=== PATIENT | male | born 1985 | race Caucasian/White ===

== ENCOUNTER 2017-09-08 21:56 | Emergency (ER) | payer MEDICAID, OTHER ==
[~2017-09-08] VITALS: Ht 182.9 cm; Wt 131.7 kg
[~2017-09-08 21:56] MED LIST: CEPH500C5 PO; SULF1TAB49 PO
[2017-09-08] MEDS ORDERED: ondansetron 4mg rapidly disintigrating tab PO ONE (22:45)
[2017-09-08] MEDS ORDERED: LIDOcaine Viscous 15ml cup PO ONE (22:45)
[2017-09-08] MEDS ORDERED: mag hydrox/Alum hydrox/simeth 30ml oral suspension PO ONE (22:45)
[2017-09-08 22:49] LABS: BASOPHILS % (AUTO) 0.3 % (0-1); EOSINOPHILS # (AUTO) 0.3 X10'3 (0-0.9); HEMOGLOBIN 14.3 g/dl (14.0-17.9); LYMPHOCYTES # (AUTO) 2.2 X10'3 (1.1-4.8); LYMPHOCYTES % (AUTO) 31.9 % (21-51); MEAN CORPUSCULAR VOLUME 85.2 FL (78-98); MEAN PLATELET VOLUME 7.6 FL (7.4-10.4); MONOCYTES # (AUTO) 0.6 X10'3 (0-0.9); MONOCYTES % (AUTO) 8.2 % (2-12); NEUTROPHILS # (AUTO) 3.8 X10'3 (1.8-7.7); NEUTROPHILS % (AUTO) 55.6 % (42-75); PLATELET COUNT 270 X10'3 (140-440); RED BLOOD COUNT 4.93 X10'6 (4.70-6.10); RED CELL DISTRIBUTION WIDTH 12.9 % (11.5-14.5); WHITE BLOOD COUNT 6.8 X10'3 (4.5-11.0)
[2017-09-08] MEDS ORDERED: pantoprazole 40mg Tablet.DR PO ONE (22:55)
[2017-09-08] MEDS ORDERED: famotidine 20mg tablet PO ONE (22:55)
[2017-09-08 22:57] VITALS: BP 165/100
[2017-09-08 23:02] LABS: INR 0.9 INR; PARTIAL THROMBOPLASTIN TIME 27 SECONDS (22-32); PROTHROMBIN TIME 9.6 SECONDS (9.0-12.0)
[2017-09-08 23:06] LABS: ALANINE AMINOTRANSFERASE 94 U/L (12-78); ALBUMIN 3.7 G/DL (3.4-5.0); ALBUMIN/GLOBULIN RATIO 0.9 (1.1-1.5); ALKALINE PHOSPHATASE 82 IU/L (46-116); ANION GAP 5 (8-16); ASPARTATE AMINO TRANSFERASE 47 U/L (10-37); BILIRUBIN,TOTAL 0.4 MG/DL (0.1-1.0); BLOOD UREA NITROGEN 17 MG/DL (7-18); CALCIUM 8.9 MG/DL (8.5-10.1); CHLORIDE 107 MMOL/L (99-107); GLUCOSE 88 MG/DL (70-104); SODIUM 144 MMOL/L (135-145); TOTAL CARBON DIOXIDE 32.2 MMOL/L (24-32); TOTAL PROTEIN 7.6 G/DL (6.4-8.2); eGFR 87 ML/MIN
== END 2017-09-08 23:03 | disposition left against medical advice (07) ==
LOC: ER 21:56
DX: R07.89 Other chest pain (principal); I10 Essential (primary) hypertension; F11.10 Opioid abuse, uncomplicated; Z86.19 Personal history of other infectious and parasitic diseases; Z88.8 Allergy status to other drugs, medicaments and biological substances; Z79.899 Other long term (current) drug therapy
CPT/HCPCS: 36415; 71045; 80053; 84484; 85025; 85610; 85730; 93005; 99285

== ENCOUNTER 2017-10-22 11:00 | Emergency (ER) | payer MEDICAID ==
[~2017-10-22] VITALS: Ht 182.9 cm; Wt 124.4 kg
[2017-10-22 12:04] LABS: BASOPHILS % (AUTO) 0.4 % (0-1); EOSINOPHILS # (AUTO) 0.2 X10'3 (0-0.9); EOSINOPHILS % (AUTO) 2.4 % (0-6); HEMATOCRIT 40.5 % (42.0-52.0); HEMOGLOBIN 13.9 g/dl (14.0-17.9); LYMPHOCYTES # (AUTO) 1.9 X10'3 (1.1-4.8); LYMPHOCYTES % (AUTO) 22.6 % (21-51); MEAN CORPUSCULAR HEMOGLOBIN 28.9 PG (27.0-31.0); MEAN CORPUSCULAR HGB CONC 34.3 % (33.0-36.5); MEAN CORPUSCULAR VOLUME 84.3 FL (78-98); MONOCYTES # (AUTO) 0.5 X10'3 (0-0.9); MONOCYTES % (AUTO) 5.4 % (2-12); NEUTROPHILS # (AUTO) 5.9 X10'3 (1.8-7.7); NEUTROPHILS % (AUTO) 69.2 % (42-75); PLATELET COUNT 315 X10'3 (140-440); RED BLOOD COUNT 4.81 X10'6 (4.70-6.10); RED CELL DISTRIBUTION WIDTH 13.3 % (11.5-14.5); WHITE BLOOD COUNT 8.6 X10'3 (4.5-11.0)
[2017-10-22 12:17] LABS: PARTIAL THROMBOPLASTIN TIME 29 SECONDS (22-32)
[2017-10-22 12:21] LABS: ALANINE AMINOTRANSFERASE 81 U/L (12-78); ALBUMIN 3.7 G/DL (3.4-5.0); ALBUMIN/GLOBULIN RATIO 0.8 (1.1-1.5); ALKALINE PHOSPHATASE 76 IU/L (46-116); ANION GAP 9 (8-16); ASPARTATE AMINO TRANSFERASE 43 U/L (10-37); BILIRUBIN,TOTAL 0.5 MG/DL (0.1-1.0); BLOOD UREA NITROGEN 18 MG/DL (7-18); BUN/CREATININE RATIO 17.8 (5.4-32.0); CHLORIDE 105 MMOL/L (99-107); CREATININE 1.01 MG/DL (0.60-1.10); GLUCOSE 114 MG/DL (70-104); POTASSIUM 3.5 MMOL/L (3.5-5.1); SODIUM 143 MMOL/L (135-145); TOTAL CARBON DIOXIDE 28.9 MMOL/L (24-32); TOTAL PROTEIN 8.1 G/DL (6.4-8.2); eGFR 85 ML/MIN
[2017-10-22 18:26] LABS: CLARITY,URINE CLEAR (Clear); COLOR,URINE AMBER (Yellow); GLUCOSE, URINE NEGATIVE (Neg); KETONES,URINE NEGATIVE (Neg); LEUKOCYTE ESTERASE ,URINE NEGATIVE (Neg); NITRITES, URINE NEGATIVE (Neg); OCCULT BLOOD,URINE NEGATIVE (Neg); PH,URINE 6.5 (4.8-8.0); PROTEIN,URINE NEGATIVE (Neg)
[2017-10-22 18:28] LABS: UA COLLECTION TYPE CLN CATCH MIDSTREAM
[2017-10-22] MEDS ORDERED: LORazepam 2 mg/ml vial IV ONE ×2 (19:05→22:50)
[2017-10-22] MEDS: esmolol/sodium cl bag 250 ML IV SCH ×2 (19:15→23:09)
[2017-10-22] MEDS ORDERED: iohexol 350MG/ML 100ml bottle IV ONE (19:15)
[2017-10-22 23:00] LABS: URINE AMPHETAMINE SCREEN POSITIVE (Neg); URINE BARBITUATE SCREEN NEGATIVE (Neg); URINE BENZODIAZEPINES SCREEN NEGATIVE (Neg); URINE CANNABINOID SCREEN NEGATIVE (Neg); URINE COCAINE SCREEN NEGATIVE (Neg); URINE METHADONE SCREEN NEGATIVE (Neg); URINE OPIATE SCREEN POSITIVE (Neg); URINE PHENCYCLIDINE SCREEN NEGATIVE (Neg)
[2017-10-22] MEDS ORDERED: normal saline 1000ML IV soln IVB ONE (23:10)
[2017-10-23] MEDS ORDERED: CLON-527 PO (00:52)
[2017-10-23] MEDS ORDERED: ONDA4TAB9 SL (00:52)
[2017-10-23] MEDS: esmolol/sodium cl bag 250 ML IV SCH (01:57)
[2017-10-23 03:43] VITALS: BP 126/87
== END 2017-10-23 03:45 | disposition home or self-care (01) ==
LOC: ER 11:00
DX: F11.23 Opioid dependence with withdrawal (principal); I10 Essential (primary) hypertension; Z86.19 Personal history of other infectious and parasitic diseases; Z88.8 Allergy status to other drugs, medicaments and biological substances; Z79.899 Other long term (current) drug therapy
CPT/HCPCS: 36415; 71045; 71275; 74160; 80053; 80305; 81003; 83605; 84484; 85025; 85610; 85651; 85730; 87040; 93005; 93306; 96361; 96374; 96376; 99285; A4310; A4353; J2060; J3490; Q9967

== ENCOUNTER 2018-08-28 12:15 | Emergency (ER) | payer MEDICAID ==
[~2018-08-28] VITALS: Ht 180.3 cm; Wt 140.9 kg
[~2018-08-28 12:15] MED LIST changes: +CLON-527 PO
[2018-08-28 14:04] VITALS: BP 132/82
== END 2018-08-28 16:32 | disposition left against medical advice (07) ==
LOC: ER 12:16
DX: M54.9 Dorsalgia, unspecified (principal); Z53.21 Procedure and treatment not carried out due to patient leaving prior to being seen by health care provider

== ENCOUNTER 2018-12-31 17:00 | Emergency (ER) | payer MEDICAID ==
[~2018-12-31] VITALS: Ht 182.9 cm; Wt 118.0 kg
[2018-12-31 17:05] VITALS: BP 167/102
--- NOTE | 2018-12-31 17:26 | NUR ---
abscess to left fa, near elbow. no drainage noted.
[2018-12-31] MEDS ORDERED: LIDOcaine 1% w/epiNEPHrine 1:200,000 30ml vial IM ONE (19:10)
[2018-12-31] MEDS ORDERED: CEPH-572 PO (19:19)
[2018-12-31] MEDS ORDERED: SULF1TAB49 PO (19:19)
--- NOTE | 2018-12-31 20:19 | NUR ---
SAJI AUSTIN TRIED TO DRAW LIPASE X1. UNSUCCESSFUL. PT REFUSED ANYMORE BLOOD DRAWS AND PT WAS DC.
== END 2018-12-31 20:24 | disposition home or self-care (01) ==
LOC: ER 17:02
DX: L02.414 Cutaneous abscess of left upper limb (principal); I10 Essential (primary) hypertension; F17.200 Nicotine dependence, unspecified, uncomplicated; F11.90 Opioid use, unspecified, uncomplicated; Z88.8 Allergy status to other drugs, medicaments and biological substances; Z79.2 Long term (current) use of antibiotics; Z79.899 Other long term (current) drug therapy
CPT/HCPCS: 10060; 99283; J3490

== ENCOUNTER 2019-01-03 13:49 | Emergency (ER) | payer MEDICAID ==
[~2019-01-03] VITALS: Ht 182.9 cm; Wt 118.2 kg
[~2019-01-03 13:49] MED LIST changes: +CEPH-572 PO
[2019-01-03 14:04] VITALS: BP 143/87
== END 2019-01-03 14:43 | disposition home or self-care (01) ==
LOC: ER 13:50
DX: L02.414 Cutaneous abscess of left upper limb (principal); Z48.01 Encounter for change or removal of surgical wound dressing; R10.9 Unspecified abdominal pain; I10 Essential (primary) hypertension; F11.90 Opioid use, unspecified, uncomplicated; Z88.8 Allergy status to other drugs, medicaments and biological substances; Z79.899 Other long term (current) drug therapy
CPT/HCPCS: 99282

== ENCOUNTER 2019-04-25 17:49 | Emergency (ER) | payer MEDICAID ==
[~2019-04-25] VITALS: Ht 182.9 cm; Wt 130.0 kg
[~2019-04-25 17:49] MED LIST changes: -CEPH-572 PO
[2019-04-25 18:14] VITALS: BP 139/76
[2019-04-25 21:17] LABS: BASOPHILS % (AUTO) 0.2 % (0-1); EOSINOPHILS # (AUTO) 0.2 X10'3 (0-0.9); EOSINOPHILS % (AUTO) 2.8 % (0-6); HEMOGLOBIN 13.2 g/dl (14.0-17.9); LYMPHOCYTES # (AUTO) 1.8 X10'3 (1.1-4.8); LYMPHOCYTES % (AUTO) 25.8 % (21-51); MEAN CORPUSCULAR HEMOGLOBIN 29.2 PG (27.0-31.0); MEAN CORPUSCULAR HGB CONC 33.9 g/dL (33.0-36.5); MONOCYTES # (AUTO) 0.6 X10'3 (0-0.9); MONOCYTES % (AUTO) 8.6 % (2-12); NEUTROPHILS # (AUTO) 4.5 X10'3 (1.8-7.7); NEUTROPHILS % (AUTO) 62.6 % (42-75); PLATELET COUNT 236 X10'3 (140-440); RED BLOOD COUNT 4.53 X10'6 (4.70-6.10); RED CELL DISTRIBUTION WIDTH 14.3 % (11.5-14.5); WHITE BLOOD COUNT 7.1 X10'3 (4.5-11.0)
[2019-04-25 21:27] LABS: ALANINE AMINOTRANSFERASE 45 U/L (12-78); ALBUMIN 3.3 G/DL (3.4-5.0); ALBUMIN/GLOBULIN RATIO 0.8 (1.1-1.5); ALKALINE PHOSPHATASE 65 IU/L (46-116); ANION GAP 6 (8-16); ASPARTATE AMINO TRANSFERASE 18 U/L (10-37); BILIRUBIN,TOTAL 0.5 MG/DL (0.1-1.0); BLOOD UREA NITROGEN 13 MG/DL (7-18); BUN/CREATININE RATIO 15.5 (5.4-32.0); CALCIUM 8.7 MG/DL (8.5-10.1); CHLORIDE 106 MMOL/L (99-107); CREATININE 0.84 MG/DL (0.60-1.10); GLUCOSE 86 MG/DL (70-104); POTASSIUM 4.1 MMOL/L (3.5-5.1); SODIUM 142 MMOL/L (135-145); TOTAL CARBON DIOXIDE 30.2 MMOL/L (24-32); TOTAL PROTEIN 7.3 G/DL (6.4-8.2); eGFR > 90 ML/MIN
[2019-04-25] MEDS ORDERED: iohexol 300mg/ml 100ml inj. ONE (21:34)
[2019-04-25] MEDS ORDERED: SULF1TAB49 PO (22:09)
[2019-04-25] MEDS ORDERED: CEPH-572 PO (22:09)
[2019-04-25] MEDS ORDERED: cephalexin 250mg capsule PO ONE (22:10)
[2019-04-25] MEDS ORDERED: sulfamethoxazole/trimethoprim DS (800/160mg) tablet PO ONE (22:10)
--- NOTE | 2019-04-25 22:25 | NUR ---
PT REFUSING IV, AND CT SCAN. STATES I CANT STAY HERE I HAVE TO GET MY DOSE OF METHADONE 130MG IN THE AM AT 0500. STEPHON SERRANO ADVISED HIM NOT RECOMMENDED. PT LEFT AMA.
== END 2019-04-25 22:36 | disposition home or self-care (01) ==
LOC: ER 17:50
DX: L02.413 Cutaneous abscess of right upper limb (principal); I10 Essential (primary) hypertension; I25.10 Atherosclerotic heart disease of native coronary artery without angina pectoris; F11.90 Opioid use, unspecified, uncomplicated; Z88.8 Allergy status to other drugs, medicaments and biological substances; Z79.2 Long term (current) use of antibiotics
CPT/HCPCS: 36415; 80053; 85025; 85610; 99283; Q9967; 99284

== ENCOUNTER 2019-04-26 11:25 | Inpatient (IN) | payer MEDICAID ==
[~2019-04-26] VITALS: Ht 182.9 cm; Wt 118.2 kg
[~2019-04-26 11:25] MED LIST changes: +CEPH-572 PO
[2019-04-26] MEDS ORDERED: CefTRIAXone 2gm/D5W 50ml 50 ML IV ONE (11:55)
[2019-04-26 12:46] LABS: BASOPHILS % (AUTO) 0.3 % (0-1); EOSINOPHILS # (AUTO) 0.2 X10'3 (0-0.9); EOSINOPHILS % (AUTO) 2.7 % (0-6); HEMATOCRIT 40.5 % (42.0-52.0); HEMOGLOBIN 13.5 g/dl (14.0-17.9); LYMPHOCYTES # (AUTO) 1.4 X10'3 (1.1-4.8); LYMPHOCYTES % (AUTO) 19.3 % (21-51); MEAN CORPUSCULAR HGB CONC 33.4 g/dL (33.0-36.5); MEAN CORPUSCULAR VOLUME 86.9 FL (78-98); MEAN PLATELET VOLUME 7.3 FL (7.4-10.4); MONOCYTES # (AUTO) 0.5 X10'3 (0-0.9); MONOCYTES % (AUTO) 7.3 % (2-12); NEUTROPHILS % (AUTO) 70.4 % (42-75); PLATELET COUNT 257 X10'3 (140-440); RED BLOOD COUNT 4.66 X10'6 (4.70-6.10); RED CELL DISTRIBUTION WIDTH 13.9 % (11.5-14.5); WHITE BLOOD COUNT 7.1 X10'3 (4.5-11.0)
[2019-04-26 12:49] LABS: PARTIAL THROMBOPLASTIN TIME 31 SECONDS (22-32)
[2019-04-26 13:00] LABS: ALANINE AMINOTRANSFERASE 43 U/L (12-78); ALBUMIN 3.4 G/DL (3.4-5.0); ALBUMIN/GLOBULIN RATIO 0.8 (1.1-1.5); ALKALINE PHOSPHATASE 68 IU/L (46-116); ANION GAP 8 (8-16); ASPARTATE AMINO TRANSFERASE 21 U/L (10-37); BILIRUBIN,TOTAL 0.3 MG/DL (0.1-1.0); BLOOD UREA NITROGEN 11 MG/DL (7-18); CALCIUM 8.6 MG/DL (8.5-10.1); CHLORIDE 106 MMOL/L (99-107); CREATININE 0.92 MG/DL (0.60-1.10); GLUCOSE 93 MG/DL (70-104); MAGNESIUM 1.9 MG/DL (1.5-2.4); SODIUM 141 MMOL/L (135-145); TOTAL CARBON DIOXIDE 26.9 MMOL/L (24-32); TOTAL PROTEIN 7.6 G/DL (6.4-8.2); eGFR > 90 ML/MIN
[2019-04-26 13:12] LABS: POTASSIUM 3.9 MMOL/L (3.5-5.1)
--- NOTE | 2019-04-26 13:19 | NUR ---
ASSUMED CARE OF PT FROM GREG LENNON
--- NOTE | 2019-04-26 13:27 | NUR ---
PT IS RESTING QUIETLY ON GURNEY, ON PHONE, C/O RT UPPER ARM PAIN 12/23, GOING TO CT
[2019-04-26] MEDS ORDERED: magnesium 4gm in 100ml NS 100 ML IV PRN (15:10)
[2019-04-26] MEDS ORDERED: magnesium 2GM in 50ml NS 50 ML IV PRN (15:10)
[2019-04-26] MEDS ORDERED: HYDROcodone/acetaminophen 10/325mg tab PO PRN (15:10)
[2019-04-26] MEDS ORDERED: mag hydrox/Alum hydrox/simeth 30ml oral suspension PO PRN (15:10)
[2019-04-26] MEDS ORDERED: potassium Cl 20 mEq SR tablet PO PRN ×2 (15:10)
[2019-04-26] MEDS ORDERED: LORazepam 1 MG tablet PO PRN (15:10)
[2019-04-26] MEDS ORDERED: potassium CL 10mEq/100ml bag 100 ML IV PRN ×2 (15:10)
[2019-04-26] MEDS ORDERED: acetaminophen 325mg tablet PO PRN ×2 (15:10)
[2019-04-26] MEDS ORDERED: magnesium Cl slow-release 64mg tablet PO PRN (15:10)
[2019-04-26] MEDS ORDERED: metoclopramide 5 mg/ml inj IV PRN (15:10)
[2019-04-26] MEDS ORDERED: vancomycin/NS 1 GM ADD-VANTAGE 250 ML X 1 DOSE IV ONE (15:10)
[2019-04-26] MEDS ORDERED: magnesium hydroxide 30ml (MOM) UD suspension PO PRN (15:10)
[2019-04-26] MEDS ORDERED: HYDROmorphone inj. 0.5 MG/0.5 ML DISP.SYRIN IV PRN (15:10)
[2019-04-26] MEDS ORDERED: HYDROcodone/acetaminophen 5mg/325mg tablet PO PRN (15:10)
[2019-04-26] MEDS ORDERED: ondansetron/PF 4mg/2ml inj IV PRN (15:10)
--- NOTE | 2019-04-26 16:02 | NUR ---
PT IS RESTING QUIETLY ON GURNEY, ASKING FOR FOOD, PT HAS BED ASSIGNMENT [id number]
[2019-04-26] MEDS: normal saline 1000ml 1,000 ML IV SCH (16:27)
[2019-04-26 16:52] VITALS: BP 150/88
--- NOTE | 2019-04-26 16:52 | NUR ---
PAGER ID: [phone] MESSAGE: [phone] Teofilo Reeves(new admit) Does patient need to be NPO? Reg diet ordered but ER note says keep NPO? Is Nisa, doing procedure tonight? FLOYD [id number]
[2019-04-26 18:00] VITALS: BP 142/87
--- NOTE | 2019-04-26 18:00 | NUR ---
Received report from Kinga LENNON. Assumed care of patient.
--- NOTE | 2019-04-26 18:10 | NUR ---
Problems reprioritized. Patient report given, questions answered & plan of care reviewed with Dipti RN.
[2019-04-26 22:00] VITALS: BP 142/80
--- NOTE | 2019-04-27 02:31 | NUR ---
Informed Dr. Gonzalez pt is upset does not think we are treating him correctly with antibiotics ext. Informed pt of the treatment plan. Pt wanted Ibuprofen orders received. Informed that pt may leave AMA.
[2019-04-27] MEDS: ibuprofen 200mg tablet PO PRN (02:37)
[2019-04-27] MEDS: normal saline 1000ml 1,000 ML IV SCH ×3 (02:38→23:59)
[2019-04-27] MEDS: HYDROmorphone 1 mg/ml syringe IV PRN ×2 (02:45→17:48)
[2019-04-27 06:06] LABS: BASOPHILS % (AUTO) 0.1 % (0-1); EOSINOPHILS # (AUTO) 0.2 X10'3 (0-0.9); EOSINOPHILS % (AUTO) 3.1 % (0-6); HEMATOCRIT 38.6 % (42.0-52.0); HEMOGLOBIN 13.1 g/dl (14.0-17.9); LYMPHOCYTES # (AUTO) 1.5 X10'3 (1.1-4.8); LYMPHOCYTES % (AUTO) 21.2 % (21-51); MEAN CORPUSCULAR HEMOGLOBIN 29.2 PG (27.0-31.0); MEAN PLATELET VOLUME 7.2 FL (7.4-10.4); MONOCYTES # (AUTO) 0.5 X10'3 (0-0.9); MONOCYTES % (AUTO) 6.5 % (2-12); NEUTROPHILS # (AUTO) 4.9 X10'3 (1.8-7.7); NEUTROPHILS % (AUTO) 69.1 % (42-75); PLATELET COUNT 248 X10'3 (140-440); RED CELL DISTRIBUTION WIDTH 13.8 % (11.5-14.5)
[2019-04-27 06:19] LABS: ALANINE AMINOTRANSFERASE 42 U/L (12-78); ALBUMIN/GLOBULIN RATIO 0.8 (1.1-1.5); ALKALINE PHOSPHATASE 63 IU/L (46-116); ANION GAP 6 (8-16); ASPARTATE AMINO TRANSFERASE 25 U/L (10-37); BILIRUBIN,TOTAL 0.4 MG/DL (0.1-1.0); BLOOD UREA NITROGEN 10 MG/DL (7-18); BUN/CREATININE RATIO 10.9 (5.4-32.0); CALCIUM 8.5 MG/DL (8.5-10.1); CHLORIDE 105 MMOL/L (99-107); CREATININE 0.92 MG/DL (0.60-1.10); GLUCOSE 79 MG/DL (70-104); MAGNESIUM 1.8 MG/DL (1.5-2.4); POTASSIUM 3.9 MMOL/L (3.5-5.1); SODIUM 140 MMOL/L (135-145); TOTAL CARBON DIOXIDE 28.8 MMOL/L (24-32); TOTAL PROTEIN 6.9 G/DL (6.4-8.2); eGFR > 90 ML/MIN
[2019-04-27 06:22] VITALS: BP 148/89
--- NOTE | 2019-04-27 06:46 | NUR ---
Gave report to Shaista LENNON.
[2019-04-27] MEDS: K and/or MAG REPLACEMENT MC SCH (08:00)
[2019-04-27] MEDS: enoxaparin 40mg/0.4ml syringe SQ SCH (08:00)
--- NOTE | 2019-04-27 08:48 | NUR ---
PAGER ID: [phone] MESSAGE: Shaista [phone] re mora Alejo in [id number]- were you going to restart the methadone? He is anxious about it refusing the dilaudid thanks!
[2019-04-27] MEDS ORDERED: METH-603 PO (09:10)
[2019-04-27] MEDS: CefTRIAXone/D5W-Rocephin 1gm 50 ML IV SCH (09:35)
[2019-04-27] MEDS: methadone 10mg tablet PO SCH (10:26)
[2019-04-27] MEDS ORDERED: ringers solution, lacted 1,000 ML IV ONE (12:40)
[2019-04-27] MEDS ORDERED: VANCOMYCIN LEVEL IV ONE (15:30)
[2019-04-27] MEDS ORDERED: iohexol 300mg/ml 100ml inj. ONE (16:28)
[2019-04-27 18:00] VITALS: BP 128/75
[2019-04-27] MEDS: lactobacillus rhamnosus 10,000 MMU CELLS/CAPSULE PO SCH (19:46)
[2019-04-27 21:58] VITALS: BP 140/78
[2019-04-28 06:00] VITALS: BP 138/72
[2019-04-28] MEDS ORDERED: famotidine 20mg tablet PO ONE (06:00)
[2019-04-28 06:35] LABS: BASOPHILS % (AUTO) 0.2 % (0-1); EOSINOPHILS # (AUTO) 0.2 X10'3 (0-0.9); EOSINOPHILS % (AUTO) 4.6 % (0-6); HEMATOCRIT 35.8 % (42.0-52.0); HEMOGLOBIN 12.1 g/dl (14.0-17.9); LYMPHOCYTES # (AUTO) 1.7 X10'3 (1.1-4.8); MEAN CORPUSCULAR HEMOGLOBIN 29.4 PG (27.0-31.0); MEAN CORPUSCULAR HGB CONC 33.9 g/dL (33.0-36.5); MEAN CORPUSCULAR VOLUME 86.7 FL (78-98); MEAN PLATELET VOLUME 7.1 FL (7.4-10.4); MONOCYTES # (AUTO) 0.4 X10'3 (0-0.9); MONOCYTES % (AUTO) 8.5 % (2-12); NEUTROPHILS # (AUTO) 2.7 X10'3 (1.8-7.7); NEUTROPHILS % (AUTO) 52.7 % (42-75); PLATELET COUNT 245 X10'3 (140-440); RED BLOOD COUNT 4.12 X10'6 (4.70-6.10); RED CELL DISTRIBUTION WIDTH 13.8 % (11.5-14.5); WHITE BLOOD COUNT 5.1 X10'3 (4.5-11.0)
[2019-04-28 06:55] LABS: ALANINE AMINOTRANSFERASE 32 U/L (12-78); ALBUMIN 2.6 G/DL (3.4-5.0); ALBUMIN/GLOBULIN RATIO 0.7 (1.1-1.5); ALKALINE PHOSPHATASE 65 IU/L (46-116); ANION GAP 8 (8-16); ASPARTATE AMINO TRANSFERASE 19 U/L (10-37); BILIRUBIN,TOTAL 0.4 MG/DL (0.1-1.0); BLOOD UREA NITROGEN 7 MG/DL (7-18); BUN/CREATININE RATIO 7.8 (5.4-32.0); CALCIUM 7.9 MG/DL (8.5-10.1); CHLORIDE 106 MMOL/L (99-107); GLUCOSE 123 MG/DL (70-104); MAGNESIUM 1.9 MG/DL (1.5-2.4); POTASSIUM 3.7 MMOL/L (3.5-5.1); SODIUM 140 MMOL/L (135-145); TOTAL CARBON DIOXIDE 25.7 MMOL/L (24-32); TOTAL PROTEIN 6.3 G/DL (6.4-8.2); eGFR > 90 ML/MIN
[2019-04-28] MEDS: K and/or MAG REPLACEMENT MC SCH (08:00)
[2019-04-28] MEDS: enoxaparin 40mg/0.4ml syringe SQ SCH (08:00)
[2019-04-28] MEDS: lactobacillus rhamnosus 10,000 MMU CELLS/CAPSULE PO SCH ×2 (08:32→20:58)
[2019-04-28] MEDS: CefTRIAXone/D5W-Rocephin 1gm 50 ML IV SCH (08:32)
[2019-04-28] MEDS: methadone 10mg tablet PO SCH (08:33)
[2019-04-28] MEDS: normal saline 1000ml 1,000 ML IV SCH ×2 (09:59→18:00)
[2019-04-28 10:00] VITALS: BP_SYST 138; BP_SYST 142; BP_DIAS 72; BP_DIAS 90
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
[2019-04-28] MEDS ORDERED: VANCOMYCIN LEVEL IV ONE (13:30)
[2019-04-28] MEDS: clindamycin 600mg/D5W 50ml 50 ML IV SCH ×2 (15:08→20:58)
[2019-04-28] MEDS: HYDROmorphone 1 mg/ml syringe IV PRN ×2 (15:13→21:01)
[2019-04-28 22:00] VITALS: BP 142/79
[2019-04-29] VITALS (18 sets, daily range): BP systolic 118–154; BP diastolic 70–90
[2019-04-29] MEDS: clindamycin 600mg/D5W 50ml 50 ML IV SCH ×4 (01:18→19:49)
[2019-04-29] MEDS: HYDROmorphone 1 mg/ml syringe IV PRN ×3 (01:19→20:01)
[2019-04-29] MEDS: normal saline 1000ml 1,000 ML IV SCH ×3 (06:11→21:52)
--- NOTE | 2019-04-29 06:44 | NUR ---
Problems reprioritized. Patient report given, questions answered & plan of care reviewed with SAJI Noonan.
[2019-04-29] MEDS ORDERED: BUPIVAcaine/PF 2.5 mg/ml (0.25%) 30ml vial ONE (06:46)
[2019-04-29] MEDS ORDERED: LIDOcaine 1% 30ml preserv. free vial ONE (06:46)
[2019-04-29 06:53] LABS: ALANINE AMINOTRANSFERASE 40 U/L (12-78); ALBUMIN 2.7 G/DL (3.4-5.0); ALBUMIN/GLOBULIN RATIO 0.7 (1.1-1.5); ALKALINE PHOSPHATASE 60 IU/L (46-116); ANION GAP 5 (8-16); ASPARTATE AMINO TRANSFERASE 22 U/L (10-37); BILIRUBIN,TOTAL 0.2 MG/DL (0.1-1.0); BLOOD UREA NITROGEN 9 MG/DL (7-18); CALCIUM 9.4 MG/DL (8.5-10.1); CHLORIDE 106 MMOL/L (99-107); CREATININE 0.82 MG/DL (0.60-1.10); GLUCOSE 92 MG/DL (70-104); MAGNESIUM 1.8 MG/DL (1.5-2.4); POTASSIUM 3.9 MMOL/L (3.5-5.1); SODIUM 142 MMOL/L (135-145); TOTAL CARBON DIOXIDE 30.6 MMOL/L (24-32); TOTAL PROTEIN 6.7 G/DL (6.4-8.2); eGFR > 90 ML/MIN
[2019-04-29 06:57] LABS: BASOPHILS % (AUTO) 0.3 % (0-1); EOSINOPHILS # (AUTO) 0.2 X10'3 (0-0.9); EOSINOPHILS % (AUTO) 3.2 % (0-6); HEMATOCRIT 37.7 % (42.0-52.0); LYMPHOCYTES % (AUTO) 27.3 % (21-51); MEAN CORPUSCULAR HEMOGLOBIN 29.6 PG (27.0-31.0); MEAN CORPUSCULAR HGB CONC 34.5 g/dL (33.0-36.5); MEAN CORPUSCULAR VOLUME 85.7 FL (78-98); MEAN PLATELET VOLUME 7.1 FL (7.4-10.4); MONOCYTES # (AUTO) 0.7 X10'3 (0-0.9); NEUTROPHILS # (AUTO) 4.3 X10'3 (1.8-7.7); NEUTROPHILS % (AUTO) 59.2 % (42-75); PLATELET COUNT 274 X10'3 (140-440); RED BLOOD COUNT 4.39 X10'6 (4.70-6.10); RED CELL DISTRIBUTION WIDTH 13.7 % (11.5-14.5); WHITE BLOOD COUNT 7.2 X10'3 (4.5-11.0)
[2019-04-29] MEDS ORDERED: sevoflurane 250ml liquid IH ONE (07:45)
[2019-04-29] MEDS ORDERED: fentaNYL/PF 50MCG/1 ML 2ML syringe ONE ×3 (07:48→08:04)
[2019-04-29] MEDS ORDERED: midazolam 2 mg/2 ml injection ONE (07:48)
[2019-04-29] MEDS: CefTRIAXone/D5W-Rocephin 1gm 50 ML IV SCH (08:00)
[2019-04-29] MEDS: K and/or MAG REPLACEMENT MC SCH (08:00)
--- NOTE | 2019-04-29 08:22 | NUR ---
Received from OR via ORTHO BED, accompanied by Anesthesiologist DR FANG and report given by Anesthesiolgist. PT PLACED ON O2 AND MONITOR, S/P I AND D OF RIGHT FOREARM, GENERAL ANESTH, AROUSES TO NAME CALLING AND GENTLE SHAKING PT HAS ZION WRAP DRESSING TO RIGHT FOREARM, CDI, DENIES ANY PAIN OR NAUSEA, GOOD RADIAL PULSES BILAT, GOOD CSM, WILL CONT TO ASSESS.
[2019-04-29] MEDS ORDERED: ringers solution, lacted 1,000 ML IV SCH (08:28)
[2019-04-29] MEDS ORDERED: morphine 4 MG/ML inj SYRINge IV PRN ×2 (08:30)
[2019-04-29] MEDS ORDERED: meperidine/PF 25mg/ml syringe IV PRN ×3 (08:30)
[2019-04-29] MEDS ORDERED: ondansetron/PF 4mg/2ml inj IV PRN (08:30)
[2019-04-29] MEDS ORDERED: proCHLORperazine 10 MG/2 ml inj IV PRN (08:30)
[2019-04-29] MEDS ORDERED: LIDOcaine 2% (20mg/ml) 5ml vial ONE (08:33)
[2019-04-29] MEDS ORDERED: propofol inj 40 ML IV ONE (08:34)
[2019-04-29] MEDS ORDERED: dexamethasone sod phosphate 4mg/ml inj. ONE (08:34)
--- NOTE | 2019-04-29 09:02 | NUR ---
Report called to receiving nurse. Transferred via ORTHO BED TO ROOM 4013A Belongings . Special Issues communicated to receiving nurse.
[2019-04-29] MEDS: methadone 10mg tablet PO SCH (09:38)
[2019-04-29] MEDS: lactobacillus rhamnosus 10,000 MMU CELLS/CAPSULE PO SCH ×2 (09:38→19:48)
[2019-04-29] MEDS: enoxaparin 40mg/0.4ml syringe SQ SCH (09:39)
--- NOTE | 2019-04-29 10:32 | NUR ---
rocephin and clindamycin were administered by OR staff per anesthesiology record in the paper chart.
--- NOTE | 2019-04-29 18:45 | NUR ---
Patient in room ORTHO 4013. I have received report from SAJI Noonan and had the opportunity to ask questions and assume patient care.
[2019-04-30] VITALS (7 sets, daily range): BP systolic 119–143; BP diastolic 65–82
[2019-04-30] MEDS: clindamycin 600mg/D5W 50ml 50 ML IV SCH ×3 (01:23→14:13)
[2019-04-30] MEDS: normal saline 1000ml 1,000 ML IV SCH ×2 (05:05→19:23)
--- NOTE | 2019-04-30 06:11 | NUR ---
Problems reprioritized. Patient report given, questions answered & plan of care reviewed with SAJI Donato.
--- NOTE | 2019-04-30 06:19 | NUR ---
Patient in room ORTHO 4013. I have received report from Daphney LENNON and had the opportunity to ask questions and assume patient care.
[2019-04-30 06:39] LABS: BASOPHILS # (AUTO) 0.1 X10'3 (0-0.2); BASOPHILS % (AUTO) 0.3 % (0-1); EOSINOPHILS % (AUTO) 0.1 % (0-6); HEMATOCRIT 38.6 % (42.0-52.0); HEMOGLOBIN 12.8 g/dl (14.0-17.9); LYMPHOCYTES # (AUTO) 1.4 X10'3 (1.1-4.8); LYMPHOCYTES % (AUTO) 8.4 % (21-51); MEAN CORPUSCULAR HEMOGLOBIN 28.6 PG (27.0-31.0); MEAN CORPUSCULAR HGB CONC 33.3 g/dL (33.0-36.5); MONOCYTES # (AUTO) 0.9 X10'3 (0-0.9); MONOCYTES % (AUTO) 5.3 % (2-12); NEUTROPHILS # (AUTO) 14.2 X10'3 (1.8-7.7); NEUTROPHILS % (AUTO) 85.9 % (42-75); PLATELET COUNT 342 X10'3 (140-440); RED BLOOD COUNT 4.49 X10'6 (4.70-6.10); RED CELL DISTRIBUTION WIDTH 13.9 % (11.5-14.5); WHITE BLOOD COUNT 16.5 X10'3 (4.5-11.0)
[2019-04-30 06:53] LABS: ALANINE AMINOTRANSFERASE 37 U/L (12-78); ALBUMIN 2.8 G/DL (3.4-5.0); ALBUMIN/GLOBULIN RATIO 0.6 (1.1-1.5); ALKALINE PHOSPHATASE 66 IU/L (46-116); ANION GAP 8 (8-16); ASPARTATE AMINO TRANSFERASE 18 U/L (10-37); BILIRUBIN,TOTAL 0.1 MG/DL (0.1-1.0); BLOOD UREA NITROGEN 9 MG/DL (7-18); BUN/CREATININE RATIO 9.9 (5.4-32.0); CALCIUM 8.9 MG/DL (8.5-10.1); CHLORIDE 107 MMOL/L (99-107); CREATININE 0.91 MG/DL (0.60-1.10); GLUCOSE 132 MG/DL (70-104); POTASSIUM 4.3 MMOL/L (3.5-5.1); SODIUM 143 MMOL/L (135-145); TOTAL PROTEIN 7.2 G/DL (6.4-8.2); eGFR > 90 ML/MIN
[2019-04-30] MEDS: K and/or MAG REPLACEMENT MC SCH (08:00)
[2019-04-30] MEDS: lactobacillus rhamnosus 10,000 MMU CELLS/CAPSULE PO SCH ×2 (08:03→19:13)
[2019-04-30] MEDS: enoxaparin 40mg/0.4ml syringe SQ SCH (08:03)
[2019-04-30] MEDS: methadone 10mg tablet PO SCH (08:04)
[2019-04-30] MEDS: CefTRIAXone/D5W-Rocephin 1gm 50 ML IV SCH (09:16)
[2019-04-30] MEDS: ibuprofen 200mg tablet PO PRN (09:17)
[2019-04-30] MEDS: HYDROmorphone 1 mg/ml syringe IV PRN (14:13)
[2019-04-30] MEDS ORDERED: LIDOcaine 1%/PF 5ML 10 MG/ML VIAL SQ ONE (15:50)
--- NOTE | 2019-04-30 17:00 | NUR ---
Dr. Chakraborty assisted with sterile dressing change. Dr. Chakraborty ordered Lidocaine and administered it into the wound, let sit for 10-15 minutes. Surgical wound was repacked sterile with 1/2 inch iodoform soaked in normal saline, ABD pad over and ZION wrap
--- NOTE | 2019-04-30 18:23 | NUR ---
Problems reprioritized. Patient report given, questions answered & plan of care reviewed with Remedios LENNON.
[2019-05-01 06:00] VITALS: BP 131/78
--- NOTE | 2019-05-01 06:41 | NUR ---
Patient in room ORTHO 4013. I have received report from Remedios LENNON and had the opportunity to ask questions and assume patient care.
[2019-05-01] MEDS: CefTRIAXone/D5W-Rocephin 1gm 50 ML IV SCH (07:33)
[2019-05-01] MEDS: lactobacillus rhamnosus 10,000 MMU CELLS/CAPSULE PO SCH (07:34)
[2019-05-01] MEDS: enoxaparin 40mg/0.4ml syringe SQ SCH (07:35)
[2019-05-01] MEDS: ibuprofen 200mg tablet PO PRN (07:35)
[2019-05-01] MEDS: methadone 10mg tablet PO SCH (07:35)
[2019-05-01] MEDS: normal saline 1000ml 1,000 ML IV SCH (07:36)
[2019-05-01] MEDS: K and/or MAG REPLACEMENT MC SCH (07:52)
--- NOTE | 2019-05-01 09:33 | NUR ---
PAGER ID: [phone] MESSAGE: Kinga [phone]. RE: [id number] Teofilo Reeves. Wound care is here to change wound but pt refusing unless lidocaine ordered. can we order lidocaine? Thanks
[2019-05-01] MEDS ORDERED: LIDOcaine 1%/PF 5ML 10 MG/ML VIAL SQ ONE ×2 (09:35→10:00)
[2019-05-01] MEDS ORDERED: LIDOcaine 1% (10mg/ml) 2ml vial SQ ONE (09:45)
[2019-05-01 10:00] VITALS: BP 141/87
[2019-05-01] MEDS ORDERED: LIDOcaine 1% 30ml preserv. free vial SQ ONE (10:00)
--- NOTE | 2019-05-01 10:00 | NUR ---
mapping pilot administered lidocaine to wound for dressing change per Dr. Loomis.
[2019-05-01 11:44] LABS: BASOPHILS % (AUTO) 0.4 % (0-1); EOSINOPHILS # (AUTO) 0.1 X10'3 (0-0.9); EOSINOPHILS % (AUTO) 1.4 % (0-6); HEMATOCRIT 41.2 % (42.0-52.0); HEMOGLOBIN 13.8 g/dl (14.0-17.9); LYMPHOCYTES % (AUTO) 33.5 % (21-51); MEAN CORPUSCULAR HEMOGLOBIN 29.2 PG (27.0-31.0); MEAN CORPUSCULAR HGB CONC 33.5 g/dL (33.0-36.5); MONOCYTES # (AUTO) 0.6 X10'3 (0-0.9); MONOCYTES % (AUTO) 6.6 % (2-12); NEUTROPHILS # (AUTO) 5.2 X10'3 (1.8-7.7); NEUTROPHILS % (AUTO) 58.1 % (42-75); PLATELET COUNT 353 X10'3 (140-440); RED BLOOD COUNT 4.73 X10'6 (4.70-6.10)
[2019-05-01 11:56] LABS: ALANINE AMINOTRANSFERASE 40 U/L (12-78); ALBUMIN 3.1 G/DL (3.4-5.0); ALBUMIN/GLOBULIN RATIO 0.7 (1.1-1.5); ALKALINE PHOSPHATASE 60 IU/L (46-116); ANION GAP 11 (8-16); ASPARTATE AMINO TRANSFERASE 22 U/L (10-37); BILIRUBIN,TOTAL 0.2 MG/DL (0.1-1.0); BLOOD UREA NITROGEN 11 MG/DL (7-18); BUN/CREATININE RATIO 12.4 (5.4-32.0); CALCIUM 8.6 MG/DL (8.5-10.1); CHLORIDE 103 MMOL/L (99-107); CREATININE 0.89 MG/DL (0.60-1.10); GLUCOSE 72 MG/DL (70-104); MAGNESIUM 1.9 MG/DL (1.5-2.4); POTASSIUM 3.8 MMOL/L (3.5-5.1); SODIUM 142 MMOL/L (135-145); TOTAL CARBON DIOXIDE 27.8 MMOL/L (24-32); TOTAL PROTEIN 7.3 G/DL (6.4-8.2); eGFR > 90 ML/MIN
[2019-05-01] MEDS ORDERED: SULF1TAB49 PO (12:21)
--- NOTE | 2019-05-01 13:18 | NUR ---
Safe discharge. Patient left with all personal belongings. went over DC packet.
--- NOTE | 2019-05-01 17:09 | NUR ---
I have reviewed and agree with all interventions, assessments performed and documented by Michel LENNON.
[2019-05-01] MEDS ORDERED: VANCOMYCIN LEVEL IV ONE (18:30)
== END 2019-05-01 13:00 | disposition home or self-care (01) | DRG 364 ==
LOC: ER 11:26 → ORTHO 4S 16:23 → CMPBEDREQ 19:04
PROVIDERS: ADMIT Family Medicine; ATTEND Family Medicine
PROC: BP2 Imaging, Non-Axial Upper Bones, Computerized Tomography (CT Scan) (ICD-10-PCS; 2019-04-26)
PROC: BQ2S1ZZ Computerized Tomography (CT Scan) of Left Lower Extremity using Low Osmolar Contrast (ICD-10-PCS; 2019-04-27)
PROC: 0J9G0ZZ Drainage of Right Lower Arm Subcutaneous Tissue and Fascia, Open Approach (ICD-10-PCS; principal; 2019-04-29 07:45)
DX: L03.113 Cellulitis of right upper limb (principal); L03.116 Cellulitis of left lower limb; L02.413 Cutaneous abscess of right upper limb; B19.20 Unspecified viral hepatitis C without hepatic coma; B95.62 Methicillin resistant Staphylococcus aureus infection as the cause of diseases classified elsewhere; F17.210 Nicotine dependence, cigarettes, uncomplicated; E66.9 Obesity, unspecified; G89.29 Other chronic pain; F11.90 Opioid use, unspecified, uncomplicated; I10 Essential (primary) hypertension; Z82.49 Family history of ischemic heart disease and other diseases of the circulatory system; Z83.3 Family history of diabetes mellitus; Z68.35 Body mass index [BMI] 35.0-35.9, adult; Z88.8 Allergy status to other drugs, medicaments and biological substances
CPT/HCPCS: 36415; 73201; 73701; 80053; 80202; 83605; 83735; 84145; 85025; 85610; 85730; 87040; 87070; 87075; 87077; 87081; 87102; 87186; 93005; 93971; 96365; 99285; A4618; A6253; A6407; A6449; A7000; G0378; J0696; J1100; J1170; J1650; J2001; J2175; J2250; J2405; J2704; J3010; J3370; J3490; J7030; J7120; Q9967

== ENCOUNTER 2019-06-19 15:33 | Emergency (ER) | payer MEDICAID ==
[~2019-06-19] VITALS: Ht 180.3 cm; Wt 141.0 kg
[~2019-06-19 15:33] MED LIST changes: -CEPH-572 PO; -CEPH500C5 PO; -CLON-527 PO; +METH-603 PO; -SULF1TAB49 PO
[2019-06-19 15:42] VITALS: BP 140/86
== END 2019-06-19 16:16 | disposition home or self-care (01) ==
LOC: ER 15:33
DX: D17.1 Benign lipomatous neoplasm of skin and subcutaneous tissue of trunk (principal); I10 Essential (primary) hypertension; F10.99 Alcohol use, unspecified with unspecified alcohol-induced disorder; F11.90 Opioid use, unspecified, uncomplicated; Z86.19 Personal history of other infectious and parasitic diseases; Z88.6 Allergy status to analgesic agent; Z79.899 Other long term (current) drug therapy; Y90.9 Presence of alcohol in blood, level not specified
CPT/HCPCS: 99281

== ENCOUNTER 2019-06-29 19:44 | Emergency (ER) | payer MEDICAID ==
[~2019-06-29] VITALS: Ht 180.3 cm; Wt 142.0 kg
[2019-06-29 19:51] VITALS: BP 141/100
== END 2019-06-29 22:03 | disposition left against medical advice (07) ==
LOC: ER 19:45
DX: R10.9 Unspecified abdominal pain (principal); Z53.21 Procedure and treatment not carried out due to patient leaving prior to being seen by health care provider

== ENCOUNTER 2019-06-30 08:41 | Emergency (ER) | payer MEDICAID ==
[~2019-06-30] VITALS: Ht 180.3 cm; Wt 127.0 kg
[2019-06-30 10:09] VITALS: BP 140/86
== END 2019-06-30 10:09 | disposition home or self-care (01) ==
LOC: ER 08:42
DX: K46.9 Unspecified abdominal hernia without obstruction or gangrene (principal); I10 Essential (primary) hypertension; Z56.0 Unemployment, unspecified; Z88.5 Allergy status to narcotic agent; Z79.899 Other long term (current) drug therapy; Z86.19 Personal history of other infectious and parasitic diseases
CPT/HCPCS: 76881; 99284

== ENCOUNTER 2019-08-07 09:01 | Emergency (ER) | payer MEDICAID ==
[~2019-08-07] VITALS: Ht 182.9 cm; Wt 118.2 kg
[2019-08-07 09:25] VITALS: BP 158/105
== END 2019-08-07 09:55 | disposition home or self-care (01) ==
LOC: ER 09:02
DX: R10.13 Epigastric pain (principal); R10.11 Right upper quadrant pain; R06.02 Shortness of breath; I10 Essential (primary) hypertension; F10.99 Alcohol use, unspecified with unspecified alcohol-induced disorder; F11.90 Opioid use, unspecified, uncomplicated; Z56.0 Unemployment, unspecified; Z86.19 Personal history of other infectious and parasitic diseases; Z88.8 Allergy status to other drugs, medicaments and biological substances; Z79.899 Other long term (current) drug therapy; Y90.9 Presence of alcohol in blood, level not specified
CPT/HCPCS: 99281

== ENCOUNTER 2019-09-06 20:19 | Emergency (ER) | payer MEDICAID ==
[~2019-09-06] VITALS: Ht 180.3 cm; Wt 150.0 kg
--- NOTE | 2019-09-06 22:12 | NUR ---
intermittent c/p this past week with some SOB that he notices when he is home from the gym. SOB is briefly, about 20 minutes. He lays down. Resolves with rest. The pain in his chest lasts quickly.
[2019-09-06 22:13] LABS: BASOPHILS % (AUTO) 0 % (0-1); EOSINOPHILS # (AUTO) 0.2 X10'3 (0-0.9); EOSINOPHILS % (AUTO) 4.3 % (0-6); HEMATOCRIT 43.6 % (42.0-52.0); LYMPHOCYTES # (AUTO) 2.4 X10'3 (1.1-4.8); LYMPHOCYTES % (AUTO) 41.3 % (21-51); MEAN CORPUSCULAR HEMOGLOBIN 29.6 PG (27.0-31.0); MEAN CORPUSCULAR HGB CONC 34.3 g/dL (33.0-36.5); MEAN CORPUSCULAR VOLUME 86.2 FL (78-98); MEAN PLATELET VOLUME 7.5 FL (7.4-10.4); MONOCYTES # (AUTO) 0.5 X10'3 (0-0.9); MONOCYTES % (AUTO) 8.5 % (2-12); NEUTROPHILS # (AUTO) 2.7 X10'3 (1.8-7.7); NEUTROPHILS % (AUTO) 45.9 % (42-75); PLATELET COUNT 286 X10'3 (140-440); RED BLOOD COUNT 5.06 X10'6 (4.70-6.10); RED CELL DISTRIBUTION WIDTH 12.9 % (11.5-14.5); WHITE BLOOD COUNT 5.8 X10'3 (4.5-11.0)
[2019-09-06 22:22] LABS: ALANINE AMINOTRANSFERASE 127 U/L (12-78); ALBUMIN 4.1 G/DL (3.4-5.0); ALBUMIN/GLOBULIN RATIO 1.1 (1.1-1.5); ALKALINE PHOSPHATASE 60 IU/L (46-116); ANION GAP 8 (8-16); ASPARTATE AMINO TRANSFERASE 57 U/L (10-37); BILIRUBIN,TOTAL 0.4 MG/DL (0.1-1.0); BLOOD UREA NITROGEN 17 MG/DL (7-18); CALCIUM 9.3 MG/DL (8.5-10.1); CHLORIDE 105 MMOL/L (99-107); GLUCOSE 88 MG/DL (70-104); POTASSIUM 4.1 MMOL/L (3.5-5.1); SODIUM 142 MMOL/L (135-145); TOTAL CARBON DIOXIDE 28.7 MMOL/L (24-32); TOTAL PROTEIN 7.9 G/DL (6.4-8.2); eGFR 86 ML/MIN
[2019-09-06 23:00] VITALS: BP 155/92
== END 2019-09-06 23:18 | disposition home or self-care (01) ==
LOC: ER 20:20
DX: R07.89 Other chest pain (principal); R06.02 Shortness of breath; I10 Essential (primary) hypertension; F11.90 Opioid use, unspecified, uncomplicated; Z86.19 Personal history of other infectious and parasitic diseases; Z56.0 Unemployment, unspecified; Z88.5 Allergy status to narcotic agent; Z79.899 Other long term (current) drug therapy
CPT/HCPCS: 36415; 71045; 80053; 84484; 85025; 93005; 99284

== ENCOUNTER 2020-02-04 18:52 | Emergency (ER) | payer MEDICAID ==
[~2020-02-04] VITALS: Ht 180.3 cm; Wt 127.3 kg
[2020-02-04 18:54] VITALS: BP 140/99
[2020-02-04] MEDS ORDERED: penicillin G benzathine 1.2 million unit/2ml syringe IM ONE (19:15)
[2020-02-04] MEDS ORDERED: dexamethasone 4mg tablet PO ONE (19:15)
[2020-02-04] MEDS ORDERED: PRED20TA PO (19:23)
== END 2020-02-04 19:36 | disposition home or self-care (01) ==
LOC: ER 18:52
DX: J02.9 Acute pharyngitis, unspecified (principal); R51 Headache; H53.8 Other visual disturbances; I10 Essential (primary) hypertension; F11.90 Opioid use, unspecified, uncomplicated; Z86.19 Personal history of other infectious and parasitic diseases; Z72.89 Other problems related to lifestyle; Z56.0 Unemployment, unspecified; Z88.8 Allergy status to other drugs, medicaments and biological substances; Z79.899 Other long term (current) drug therapy
CPT/HCPCS: 96372; 99283; J0561

== ENCOUNTER 2020-03-14 | Emergency (ER) | payer MEDICAID ==
[~2020-03-14] VITALS: Ht 180.3 cm; Wt 131.8 kg
[2020-03-14 00:06] VITALS: BP 155/67
== END 2020-03-14 02:10 | disposition left against medical advice (07) ==
LOC: ER
DX: R05 Cough (principal); Z53.21 Procedure and treatment not carried out due to patient leaving prior to being seen by health care provider

== ENCOUNTER 2020-04-23 01:35 | Emergency (ER) | payer MEDICAID ==
[~2020-04-23] VITALS: Ht 180.3 cm; Wt 152.0 kg
[2020-04-23 01:42] VITALS: BP 162/95
[2020-04-23] MEDS ORDERED: SULF1TAB49 PO (02:26)
== END 2020-04-23 02:41 | disposition home or self-care (01) ==
LOC: ER 01:35
DX: L03.116 Cellulitis of left lower limb (principal); I10 Essential (primary) hypertension; F11.90 Opioid use, unspecified, uncomplicated; Z86.19 Personal history of other infectious and parasitic diseases; Z72.89 Other problems related to lifestyle; Z88.8 Allergy status to other drugs, medicaments and biological substances; Z79.899 Other long term (current) drug therapy
CPT/HCPCS: 99284

== ENCOUNTER 2020-06-29 00:23 | Emergency (ER) | payer MEDICAID ==
[~2020-06-29] VITALS: Ht 182.9 cm; Wt 122.7 kg
[2020-06-29 00:27] VITALS: BP 168/82
[2020-06-29] MEDS ORDERED: SULF1TAB49 PO ×2 (01:36→01:42)
== END 2020-06-29 02:08 | disposition home or self-care (01) ==
LOC: ER 00:23
DX: L02.412 Cutaneous abscess of left axilla (principal); I10 Essential (primary) hypertension; F11.90 Opioid use, unspecified, uncomplicated; Z86.19 Personal history of other infectious and parasitic diseases; Z72.89 Other problems related to lifestyle; Z88.8 Allergy status to other drugs, medicaments and biological substances; Z79.2 Long term (current) use of antibiotics; Z79.899 Other long term (current) drug therapy
CPT/HCPCS: 99283

== ENCOUNTER 2020-07-11 23:31 | Emergency (ER) | payer MEDICAID ==
[~2020-07-11] VITALS: Ht 180.3 cm; Wt 127.3 kg
[~2020-07-11 23:31] MED LIST changes: +SULF1TAB49 PO
[2020-07-12 02:15] VITALS: BP 130/97
== END 2020-07-12 03:00 | disposition home or self-care (01) ==
LOC: ER 23:31
DX: M79.605 Pain in left leg (principal); I10 Essential (primary) hypertension; F17.200 Nicotine dependence, unspecified, uncomplicated; F11.90 Opioid use, unspecified, uncomplicated; Z86.19 Personal history of other infectious and parasitic diseases; Z72.89 Other problems related to lifestyle; Z88.8 Allergy status to other drugs, medicaments and biological substances; Z79.2 Long term (current) use of antibiotics; Z79.899 Other long term (current) drug therapy
CPT/HCPCS: 93971; 99284

== ENCOUNTER 2020-08-01 05:47 | Emergency (ER) | payer MEDICAID ==
[~2020-08-01] VITALS: Ht 180.3 cm; Wt 127.3 kg
[2020-08-01 05:54] VITALS: BP 165/92
[2020-08-01] MEDS ORDERED: sulfamethoxazole/trimethoprim DS (800/160mg) tablet PO ONE (06:55)
[2020-08-01] MEDS ORDERED: SULF1TAB49 PO (07:02)
== END 2020-08-01 07:08 | disposition home or self-care (01) ==
LOC: ER 05:47
DX: L02.412 Cutaneous abscess of left axilla (principal); I10 Essential (primary) hypertension; F17.200 Nicotine dependence, unspecified, uncomplicated; Z86.19 Personal history of other infectious and parasitic diseases; Z72.89 Other problems related to lifestyle; Z88.8 Allergy status to other drugs, medicaments and biological substances; Z79.2 Long term (current) use of antibiotics; Z79.899 Other long term (current) drug therapy
CPT/HCPCS: 99283

== ENCOUNTER 2020-10-16 16:20 | Emergency (ER) | payer MEDICAID ==
[~2020-10-16] VITALS: Ht 180.3 cm; Wt 163.0 kg
[2020-10-16] MEDS ORDERED: LIDOcaine 1% W/epiNEPHrine 1:200,000 10ml vial IJ ONE (17:05)
[2020-10-16] MEDS ORDERED: TETanus/Pertussis (Acell)/Diphther VAC/PF (Tdap-Adult) 0.5ml syringe IMVAC ONE (17:05)
[2020-10-16] MEDS ORDERED: CEPH250T PO (17:07)
[2020-10-16] MEDS ORDERED: SULF1TAB45 PO (17:07)
[2020-10-16 18:12] VITALS: BP 127/83
== END 2020-10-16 18:47 | disposition home or self-care (01) ==
LOC: ER 16:20
DX: L02.414 Cutaneous abscess of left upper limb (principal); I10 Essential (primary) hypertension; Z88.8 Allergy status to other drugs, medicaments and biological substances; Z79.2 Long term (current) use of antibiotics; Z79.899 Other long term (current) drug therapy; Z86.19 Personal history of other infectious and parasitic diseases; Z72.89 Other problems related to lifestyle
CPT/HCPCS: 10060; 90471; 90715; 99284

== ENCOUNTER 2021-02-23 04:02 | Emergency (ER) | payer MEDICAID ==
[~2021-02-23] VITALS: Ht 180.3 cm; Wt 131.0 kg
[2021-02-23 04:18] VITALS: BP 153/103
== END 2021-02-23 05:25 | disposition home or self-care (01) ==
LOC: ER 04:03
DX: R10.13 Epigastric pain (principal); I10 Essential (primary) hypertension; F15.90 Other stimulant use, unspecified, uncomplicated; Z86.19 Personal history of other infectious and parasitic diseases; Z72.89 Other problems related to lifestyle; Z88.8 Allergy status to other drugs, medicaments and biological substances; Z79.899 Other long term (current) drug therapy; Z72.0 Tobacco use
CPT/HCPCS: 93005; 99283

== ENCOUNTER 2021-03-02 18:39 | Emergency (ER) | payer MEDICAID ==
[~2021-03-02] VITALS: Ht 180.3 cm; Wt 122.7 kg
[2021-03-02 19:19] VITALS: BP 161/85
--- NOTE | 2021-03-02 20:26 | NUR ---
pt is 35 yo male c/o abscess, red, slightly swollen, no drainage to left AC x2 days, does use heroin off and on, also on methadone from a clinic, last used a couple days ago,
[2021-03-02] MEDS ORDERED: SULF1TAB49 PO (20:39)
[2021-03-02] MEDS ORDERED: sulfamethoxazole/trimethoprim DS (800/160mg) tablet PO ONE (20:45)
== END 2021-03-02 20:55 | disposition home or self-care (01) ==
LOC: ER 18:40
DX: L03.114 Cellulitis of left upper limb (principal); I10 Essential (primary) hypertension; Z79.899 Other long term (current) drug therapy
CPT/HCPCS: 99283

== ENCOUNTER 2021-06-29 22:20 | Emergency (ER) | payer MEDICAID ==
[~2021-06-29] VITALS: Ht 182.9 cm; Wt 172.7 kg
[2021-06-29 22:25] VITALS: BP 143/95
[2021-06-29] MEDS ORDERED: clindamycin 150mg capsule PO ONE (22:50)
[2021-06-29] MEDS ORDERED: CLIN300C71 PO (23:00)
== END 2021-06-29 23:15 | disposition home or self-care (01) ==
LOC: ER 22:21
DX: T20.1 Burn of first degree of head, face, and neck (principal); Z48.00 Encounter for change or removal of nonsurgical wound dressing; X58.XXXD Exposure to other specified factors, subsequent encounter; I10 Essential (primary) hypertension; Z88.5 Allergy status to narcotic agent; Z79.899 Other long term (current) drug therapy
CPT/HCPCS: 99283

== ENCOUNTER 2021-07-08 20:46 | Inpatient (IN) | payer MEDICAID ==
[~2021-07-08] VITALS: Ht 182.9 cm; Wt 131.5 kg
[~2021-07-08 20:46] MED LIST changes: +CLIN300C71 PO
[2021-07-08] MEDS ORDERED: normal saline 1000ML IV soln IV ONE (21:25)
[2021-07-08] MEDS ORDERED: vancomycin/NS 1 GM ADD-VANTAGE 250 ML IV ONE (22:20)
[2021-07-08] MEDS ORDERED: piperacillin/tazo 4.5gm/100ml 100 ML IV ONE (22:21)
[2021-07-08 22:24] LABS: CLARITY,URINE CLEAR (Clear); COLOR,URINE DARK YELLOW (Yellow); UA COLLECTION TYPE CLN CATCH MIDSTREAM
[2021-07-08 22:25] LABS: GLUCOSE, URINE NEGATIVE (Neg); KETONES,URINE TRACE mg/dl (Neg); LEUKOCYTE ESTERASE ,URINE NEGATIVE (Neg); NITRITES, URINE NEGATIVE (Neg); OCCULT BLOOD,URINE NEGATIVE (Neg); PROTEIN,URINE TRACE mg/dl (Neg); UROBILINOGEN,URINE 0.2 E.U/dL (0.2-1.0)
[2021-07-08 22:26] LABS: SQUAMOUS EPITHELIAL CELL,UR FEW /LPF (FEW)
[2021-07-08 22:27] LABS: FINE GRANULAR CAST 0-3 /LPF (NEGATIVE); MUCUS STRANDS MODERATE /LPF (Neg)
[2021-07-08 22:28] LABS: BACTERIA,URINE FEW /HPF (Neg)
[2021-07-08 22:29] LABS: URINE AMPHETAMINE SCREEN POSITIVE (Neg); URINE BARBITUATE SCREEN NEGATIVE (Neg); URINE BENZODIAZEPINES SCREEN NEGATIVE (Neg); URINE CANNABINOID SCREEN NEGATIVE (Neg); URINE COCAINE SCREEN NEGATIVE (Neg); URINE METHADONE SCREEN NEGATIVE (Neg); URINE OPIATE SCREEN POSITIVE (Neg); URINE PHENCYCLIDINE SCREEN NEGATIVE (Neg)
[2021-07-08] MEDS ORDERED: acetaminophen 325mg tablet PO ONE (22:35)
[2021-07-08 22:44] LABS: MEAN PLATELET VOLUME 7.2 FL (7.4-10.4)
[2021-07-08 22:45] LABS: BASOPHILS % (AUTO) 0.2 % (0-1); EOSINOPHILS % (AUTO) 0.3 % (0-6); HEMATOCRIT 38.1 % (42.0-52.0); HEMOGLOBIN 12.8 g/dl (14.0-17.9); LYMPHOCYTES # (AUTO) 0.8 X10'3 (1.1-4.8); LYMPHOCYTES % (AUTO) 5.4 % (21-51); MEAN CORPUSCULAR HGB CONC 33.6 g/dL (33.0-36.5); MEAN CORPUSCULAR VOLUME 80.6 FL (78-98); MONOCYTES # (AUTO) 0.9 X10'3 (0-0.9); MONOCYTES % (AUTO) 5.7 % (2-12); NEUTROPHILS # (AUTO) 13.3 X10'3 (1.8-7.7); NEUTROPHILS % (AUTO) 88.4 % (42-75); PLATELET COUNT 282 X10'3 (140-440); RED BLOOD COUNT 4.73 X10'6 (4.70-6.10); RED CELL DISTRIBUTION WIDTH 14.9 % (11.5-14.5); WHITE BLOOD COUNT 15.1 X10'3 (4.5-11.0)
[2021-07-08 22:58] LABS: ALANINE AMINOTRANSFERASE 71 U/L (12-78); ALBUMIN 3.1 G/DL (3.4-5.0); ALBUMIN/GLOBULIN RATIO 0.6 (1.1-1.5); ALKALINE PHOSPHATASE 81 IU/L (46-116); ANION GAP 6 (8-16); ASPARTATE AMINO TRANSFERASE 31 U/L (10-37); BILIRUBIN,TOTAL 0.7 MG/DL (0.1-1.0); BLOOD UREA NITROGEN 15 MG/DL (7-18); BUN/CREATININE RATIO 12.5 (5.4-32.0); CALCIUM 8.4 MG/DL (8.5-10.1); CHLORIDE 103 MMOL/L (99-107); ETHANOL < 0.010 GM/DL (0.0-0.010); GLUCOSE 132 MG/DL (70-104); POTASSIUM 3.8 MMOL/L (3.5-5.1); SODIUM 138 MMOL/L (135-145); TOTAL CARBON DIOXIDE 28.9 MMOL/L (24-32); TOTAL PROTEIN 8.1 G/DL (6.4-8.2); eGFR 69 ML/MIN
[2021-07-08 23:57] LABS: PLATELET ESTIMATE NORMAL; TOTAL CELLS COUNTED 100
[2021-07-09] MEDS ORDERED: HYDROcodone/acetaminophen 5mg/325mg tablet PO PRN
[2021-07-09] MEDS ORDERED: mag hydrox/Alum hydrox/simeth 30ml oral suspension PO PRN
[2021-07-09] MEDS ORDERED: magnesium 4gm in 100ml NS 100 ML IV PRN
[2021-07-09] MEDS ORDERED: potassium CL 10mEq/100ml bag 100 ML IV PRN
[2021-07-09] MEDS ORDERED: magnesium Cl slow-release 64mg tablet PO PRN
[2021-07-09] MEDS ORDERED: potassium Cl 20 mEq SR tablet PO PRN ×2
[2021-07-09] MEDS ORDERED: magnesium 2GM in 50ml NS 50 ML IV PRN
[2021-07-09] MEDS ORDERED: morphine 2 MG/ML inj. syringe IV PRN ×2
[2021-07-09] MEDS ORDERED: ondansetron/PF 4mg/2ml inj IV PRN
[2021-07-09] MEDS ORDERED: acetaminophen 325mg tablet PO PRN ×2
[2021-07-09] MEDS ORDERED: HYDROcodone/acetaminophen 10/325mg tab PO PRN
[2021-07-09] MEDS ORDERED: magnesium hydroxide 30ml (MOM) UD suspension PO PRN
[2021-07-09] MEDS ORDERED: CLIN-97 PO (00:33)
[2021-07-09] MEDS ORDERED: LORazepam 1 MG tablet PO PRN (00:35)
[2021-07-09] MEDS ORDERED: LORazepam 2 mg/ml vial IV PRN (00:35)
[2021-07-09] MEDS: normal saline 1000ml 1,000 ML IV SCH ×2 (00:47→07:12)
[2021-07-09] MEDS: atenolol 25mg tablet PO SCH ×2 (01:11→08:00)
[2021-07-09 01:14] LABS: D-DIMER 0.62 MG/L FEU (0-0.50)
[2021-07-09 03:35] VITALS: BP 120/75
--- NOTE | 2021-07-09 06:25 | NUR ---
Report given to Fariba oncoming nurse .
[2021-07-09 06:35] LABS: POTASSIUM 3.7 MMOL/L (3.5-5.1)
--- NOTE | 2021-07-09 06:54 | NUR ---
Patient in room [facility]AR[facility] 346. I have received report from carey samuel and had the opportunity to ask questions and assume patient care.
[2021-07-09] MEDS ORDERED: vancomycin/NS 1 GM ADD-VANTAGE 250 ML IV SCH (07:00)
[2021-07-09 08:00] VITALS: BP 130/74
[2021-07-09] MEDS ORDERED: heparin, porcine 5000 units/ml vial SQ SCH (08:00)
[2021-07-09] MEDS ORDERED: nicotine 14mg patch - 24hr TD SCH (08:00)
[2021-07-09] MEDS ORDERED: K and/or MAG REPLACEMENT MC SCH (08:00)
[2021-07-09] MEDS ORDERED: docusate sod 100mg capsule PO SCH (08:00)
--- NOTE | 2021-07-09 10:29 | NUR ---
pt left against medical advice. Iv removed tip intact no complication. Pt educated by nursing staff and MD of possible risks of leaving ama. Pt signed form and walked down to vehicle
[2021-07-09] MEDS ORDERED: temazepam 15mg capsule PO PRN (21:00)
[2021-07-09] MEDS ORDERED: VANCOMYCIN LEVEL IV ONE (22:30)
== END 2021-07-09 10:27 | disposition left against medical advice (07) | DRG 720 ==
LOC: ER 20:47 → ED HOLD 07-09 00:07 → SUR 3N 07-09 03:33
PROVIDERS: ADMIT Internal Medicine; ATTEND Internal Medicine
DX: A41.9 Sepsis, unspecified organism (principal); L03.115 Cellulitis of right lower limb; F15.90 Other stimulant use, unspecified, uncomplicated; Z53.29 Procedure and treatment not carried out because of patient's decision for other reasons; Z20.822 Contact with and (suspected) exposure to COVID-19; F17.210 Nicotine dependence, cigarettes, uncomplicated; I12.9 Hypertensive chronic kidney disease with stage 1 through stage 4 chronic kidney disease, or unspecified chronic kidney disease; N18.30 Chronic kidney disease, stage 3 unspecified; B19.20 Unspecified viral hepatitis C without hepatic coma; Z88.8 Allergy status to other drugs, medicaments and biological substances; Z82.49 Family history of ischemic heart disease and other diseases of the circulatory system; Z83.3 Family history of diabetes mellitus
CPT/HCPCS: 36415; 71045; 80053; 80305; 80320; 81001; 83605; 83735; 84132; 84145; 85007; 85025; 85379; 87040; 87088; 87635; 93005; 96365; 97116; 97161; 97530; 99285; G0378; J1644; J2270; J2543; J3370; J7030

== ENCOUNTER 2021-07-09 13:37 | Emergency (ER) | payer MEDICAID ==
[~2021-07-09 13:37] MED LIST changes: +CLIN-97 PO
== END 2021-07-09 19:47 | disposition left against medical advice (07) ==
LOC: ER 13:40
DX: L03.90 Cellulitis, unspecified (principal); Z53.21 Procedure and treatment not carried out due to patient leaving prior to being seen by health care provider

== ENCOUNTER 2022-09-15 00:54 | Emergency (ER) | payer MEDICAID ==
[~2022-09-15] VITALS: Ht 180.3 cm; Wt 182.9 kg
[~2022-09-15 00:54] MED LIST changes: -CLIN300C71 PO; -METH-603 PO; -SULF1TAB49 PO
[2022-09-15 00:56] VITALS: BP 136/85
[2022-09-15 02:00] LABS: ALANINE AMINOTRANSFERASE 43 U/L (12-78); ALBUMIN 3.1 G/DL (3.4-5.0); ALBUMIN/GLOBULIN RATIO 0.7 (1.1-1.5); ALKALINE PHOSPHATASE 79 IU/L (46-116); ANION GAP 8 (8-16); ASPARTATE AMINO TRANSFERASE 24 U/L (10-37); BILIRUBIN,TOTAL 0.7 MG/DL (0.1-1.0); BLOOD UREA NITROGEN 14 MG/DL (7-18); CALCIUM 8.7 MG/DL (8.5-10.1); CHLORIDE 101 MMOL/L (99-107); GLUCOSE 154 MG/DL (70-104); POTASSIUM 3.4 MMOL/L (3.5-5.1); SODIUM 137 MMOL/L (135-145); TOTAL CARBON DIOXIDE 28.1 MMOL/L (24-32); TOTAL PROTEIN 7.8 G/DL (6.4-8.2); eGFR 84 ML/MIN
[2022-09-15] MEDS ORDERED: CEPH-585 PO (02:03)
[2022-09-15] MEDS ORDERED: SULF1TAB49 PO (02:03)
== END 2022-09-15 02:20 | disposition home or self-care (01) ==
LOC: ER 00:55
DX: L03.113 Cellulitis of right upper limb (principal); I10 Essential (primary) hypertension; Z88.5 Allergy status to narcotic agent
CPT/HCPCS: 36415; 71045; 73090; 80053; 83605; 84145; 87040; 99284

== ENCOUNTER 2022-10-05 09:12 | Emergency (ER) | payer MEDICAID ==
[~2022-10-05] VITALS: Ht 180.3 cm; Wt 136.4 kg
[~2022-10-05 09:12] MED LIST changes: +CEPH-585 PO
[2022-10-05 09:35] VITALS: BP 139/73
[2022-10-05] MEDS ORDERED: normal saline 1000ML IV soln IVB ONE (10:10)
[2022-10-05] MEDS ORDERED: ketorolac trometh. 30mg/ml inj. IV ONE (10:10)
[2022-10-05 12:18] LABS: BASOPHILS % (AUTO) 0.2 % (0-1); EOSINOPHILS % (AUTO) 0 % (0-6); HEMATOCRIT 46.5 % (42.0-52.0); HEMOGLOBIN 15.3 g/dl (14.0-17.9); LYMPHOCYTES # (AUTO) 0.6 X10'3 (1.1-4.8); LYMPHOCYTES % (AUTO) 3.5 % (21-51); MEAN CORPUSCULAR HEMOGLOBIN 28.6 PG (27.0-31.0); MEAN CORPUSCULAR HGB CONC 32.8 g/dL (33.0-36.5); MEAN PLATELET VOLUME 7.3 FL (7.4-10.4); MONOCYTES # (AUTO) 0.9 X10'3 (0-0.9); MONOCYTES % (AUTO) 5.1 % (2-12); NEUTROPHILS # (AUTO) 15.6 X10'3 (1.8-7.7); NEUTROPHILS % (AUTO) 91.2 % (42-75); PLATELET COUNT 296 X10'3 (140-440); RED BLOOD COUNT 5.34 X10'6 (4.70-6.10); WHITE BLOOD COUNT 17.2 X10'3 (4.5-11.0)
[2022-10-05 12:38] LABS: ALANINE AMINOTRANSFERASE 79 U/L (12-78); ALBUMIN 3.8 G/DL (3.4-5.0); ALBUMIN/GLOBULIN RATIO 0.8 (1.1-1.5); ALKALINE PHOSPHATASE 77 IU/L (46-116); ANION GAP 11 (8-16); ASPARTATE AMINO TRANSFERASE 48 U/L (10-37); BILIRUBIN,TOTAL 1.2 MG/DL (0.1-1.0); BLOOD UREA NITROGEN 13 MG/DL (7-18); BUN/CREATININE RATIO 12.1 (5.4-32.0); CALCIUM 9.6 MG/DL (8.5-10.1); CHLORIDE 102 MMOL/L (99-107); CREATININE 1.07 MG/DL (0.60-1.10); GLUCOSE 117 MG/DL (70-104); POTASSIUM 3.7 MMOL/L (3.5-5.1); SODIUM 137 MMOL/L (135-145); TOTAL CARBON DIOXIDE 24.4 MMOL/L (24-32); TOTAL PROTEIN 8.8 G/DL (6.4-8.2); eGFR 77 ML/MIN
== END 2022-10-05 17:22 | disposition left against medical advice (07) ==
LOC: ER 09:14
DX: R10.84 Generalized abdominal pain (principal); Z88.6 Allergy status to analgesic agent; Z79.1 Long term (current) use of non-steroidal anti-inflammatories (NSAID)
CPT/HCPCS: 36415; 80053; 85025; 99283

== ENCOUNTER 2023-04-04 19:10 | Emergency (ER) | payer MEDICAID ==
[~2023-04-04] VITALS: Ht 180.3 cm; Wt 131.8 kg
[2023-04-04 19:27] VITALS: BP 154/100; PULSE 110; RESP 20; TEMP 99.2; O2SAT 99
--- NOTE | 2023-04-04 20:00 | NUR ---
PT NOTIFIED REGISTRATION THAT HE WAS SOB. VITALS AND 12 LEAD OBTAINED. MD BEDSIDE TO ASSESS.
[2023-04-04] MEDS ORDERED: acetaminophen 325mg tablet PO ONE (20:25)
[2023-04-04] MEDS ORDERED: normal saline 1000ml 1,000 ML IV ONE ×3 (20:25)
[2023-04-04] MEDS ORDERED: cefepime 2g/NS 100ml ADVANTAGE 100 ML IV SCH (20:44)
[2023-04-04] MEDS ORDERED: vancomycin/NS 1 GM ADD-VANTAGE 250 ML X 1 DOSE IV ONE ×2 (20:45→22:45)
== END 2023-04-04 21:43 | disposition left against medical advice (07) ==
LOC: ER 19:11
DX: L03.116 Cellulitis of left lower limb (principal); R06.02 Shortness of breath; I10 Essential (primary) hypertension; F15.10 Other stimulant abuse, uncomplicated; Z88.5 Allergy status to narcotic agent; Z79.899 Other long term (current) drug therapy
CPT/HCPCS: 93005; 99283

== ENCOUNTER 2024-07-17 20:28 | Emergency (ER) | payer MEDICAID ==
[~2024-07-17] VITALS: Ht 180.3 cm; Wt 14.6 kg
[~2024-07-17 20:28] MED LIST changes: -CEPH-585 PO
[2024-07-17 20:30] VITALS: TEMP 98.2
[2024-07-17 21:55] LABS: BASOPHILS % (AUTO) 0.3 % (0-1); EOSINOPHILS % (AUTO) 0.4 % (0-6); HEMATOCRIT 48.1 % (42.0-52.0); HEMOGLOBIN 16.8 g/dl (14.0-17.9); LYMPHOCYTES # (AUTO) 2.1 X10'3 (1.1-4.8); LYMPHOCYTES % (AUTO) 20.3 % (21-51); MEAN CORPUSCULAR HEMOGLOBIN 30.8 PG (27.0-31.0); MEAN CORPUSCULAR HGB CONC 34.8 g/dL (33.0-36.5); MEAN CORPUSCULAR VOLUME 88.5 FL (78-98); MEAN PLATELET VOLUME 7.3 FL (7.4-10.4); MONOCYTES # (AUTO) 0.8 X10'3 (0-0.9); MONOCYTES % (AUTO) 7.7 % (2-12); NEUTROPHILS # (AUTO) 7.5 X10'3 (1.8-7.7); NEUTROPHILS % (AUTO) 71.3 % (42-75); PLATELET COUNT 275 X10'3 (140-440); RED BLOOD COUNT 5.44 X10'6 (4.70-6.10); RED CELL DISTRIBUTION WIDTH 13.1 % (11.5-14.5); WHITE BLOOD COUNT 10.5 X10'3 (4.5-11.0)
[2024-07-17 22:06] LABS: ALANINE AMINOTRANSFERASE 163 U/L (12-78); ALBUMIN 3.9 G/DL (3.4-5.0); ALBUMIN/GLOBULIN RATIO 0.9 (1.1-1.5); ALKALINE PHOSPHATASE 81 IU/L (46-116); ANION GAP 8 (8-16); ASPARTATE AMINO TRANSFERASE 78 U/L (10-37); BILIRUBIN,TOTAL 1.2 MG/DL (0.1-1.0); BLOOD UREA NITROGEN 16 MG/DL (7-18); BUN/CREATININE RATIO 16.8 (10.0-20.0); CALCIUM 8.8 MG/DL (8.5-10.1); CHLORIDE 100 MMOL/L (99-107); CREATININE 0.95 MG/DL (0.60-1.10); GLUCOSE 134 MG/DL (70-104); LIPASE 10 U/L (16-77); POTASSIUM 3.6 MMOL/L (3.5-5.1); SODIUM 136 MMOL/L (135-145); TOTAL CARBON DIOXIDE 27.8 MMOL/L (24-32); TOTAL PROTEIN 8.4 G/DL (6.4-8.2); eCRCL 21 ML/MIN; eGFR 88 ML/MIN
[2024-07-17 22:45] VITALS: BP 156/89; PULSE 98; RESP 18; O2SAT 96
== END 2024-07-17 22:46 | disposition home or self-care (01) ==
LOC: ER 20:28
DX: K43.9 Ventral hernia without obstruction or gangrene (principal); E11.9 Type 2 diabetes mellitus without complications; I10 Essential (primary) hypertension
CPT/HCPCS: 36415; 80053; 83690; 85025; 99283